=== PATIENT | male | born 1995 | race Caucasian/White ===

== ENCOUNTER 2021-04-27 12:20 | Emergency (ER) | payer OTHER ==
[~2021-04-27] VITALS: Ht 188 cm; Wt 160.0 kg
--- NOTE | 2021-04-27 12:51 | RAD ---
Site ID: [id number] EXAMINATION: XR SHOULDER_LEFT 2+ VIEWS. HISTORY: 25 years Male Reason: POSSIBLE DISLOCATION, : . COMPARISON: None. FINDINGS: No fracture, dislocation or radiopaque foreign body. The joint spaces and articular surfaces appea r unremarkable. IMPRESSION: Unremarkable exam. Electronically signed by: Pavel Wright MD (04/27/2021 12:48 PM) [id number]
[2021-04-27 12:53] VITALS: BP 138/76
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
[2021-04-27] MEDS ORDERED: IBUPROFEN 600 MG TABLET. PO ONE (13:30)
== END 2021-04-27 13:56 | disposition home or self-care (01) ==
LOC: ER 12:20
DX: M25.512 Pain in left shoulder (principal)
CPT/HCPCS: 73030; 99283